=== PATIENT | male | born 1975 | race African-American/Black ===

== ENCOUNTER 2016-05-15 22:01 | Emergency (ER) | payer BC ==
[2016-05-15 22:08] VITALS: BP 162/87; PULSE 93; TEMP 98.7; BMI 31.1
[2016-05-15] MEDS ORDERED: ALBUTEROL SO4 2.5/IPRATROPIUM 0.5 INH SOL 3 ML VIAL.NEB. NEB ONE (23:13)
--- NOTE | 2016-05-15 23:19 | PDOC ---
History of Present Illness - General Chief Complaint: Cold Symptoms Stated Complaint: ASTHMA/COUGH Time Seen by Provider: 05/15/16 22:53 History Source: Patient Exam Limitations: No Limitations - History of Present Illness Initial Comments: 05/15/16 23:20 40-year-old male, with no significant past medical history other than asthma, here with complaints of sudden onset of cough for the past 3-4 days. He states that he has had sick contact at home with child and being sick previously. Patient states that he has been having nonproductive cough for past 3 days. He has had albuterol nebulizer but cough still persists. He also had one dose of nebulized budesonide with no improvement. No other complaints at this time. No chest pain, no shortness of breath, no fever, no chills, no headache, no blurry vision, no dyspnea, no dysphagia, no hemoptysis, no bloody sputum. Timing/Duration: reports: getting worse Severity: reports: moderate Possible Cause: Yes: illness exposure Modifying Factors: improves with: albuterol nebulizer Associated Symptoms: reports: denies symptoms Aspirin Received prior to arrival: Yes: no aspirin today. No: unknown, 81 mg x 1, 81 mg x 2, 81 mg x 3, 81 mg x 4, 325 mg x 1, provided at home, provided by EMS, provided by ED ASA Contraindications(Core Measure): No: Allergy, Other, Active Blding w/i 24 hrs., Plavix, Receiving Warfarin Beta Desmond Contraindications(Core Measure): No: Not Prescribed, Allergy, Bradycardia (HR <60bpm), Advanced Heart Block, Pacemaker, Other Beta Desmond Given by EMS(Core Measure): No Beta Desmond Taken at Home(Core Measure): No Beta Desmond Not Indicated at this Time(Core Measure): No Past History - Past Medical History Allergies/Adverse Reactions: Allergies Allergy/AdvReac Type Severity Reaction Status Date / Time ibuprofen [From Motrin] Allergy Mild Hives Verified 05/15/16 22:05 Home Medications: Ambulatory Orders NK [No Known Home Medication] 04/20/14 Asthma: Yes HTN: Yes Suicide Attempt (Hx): No - Psycho/Social/Smoking Cessation Hx Anxiety: No Suicidal Ideation: No Smoking Status: No Smoking History: Never smoked Have you smoked in the past 12 months: No Number of Cigarettes Smoked Daily: 0 Information on smoking cessation initiated: No Hx Alcohol Use: No Drug/Substance Use Hx: No Substance Use Type: None *Physical Exam - Vital Signs Last Vital Signs Temp Pulse Resp BP Pulse Ox 98.7 F 93 H 14 162/87 96 05/15/16 22:05 05/15/16 22:05 05/15/16 22:05 05/15/16 22:05 05/15/16 22:05 - Physical Exam General Appearance: Yes: Appropriately Dressed. No: Apparent Distress, Disheveled, Mild Distress, Moderate Distress, Severe Distress, Alcohol on Breath , Intoxicated, Cachetic, Obese, Thin HEENT: positive: EOMI, IVANA, Normal ENT Inspection, Normal Voice, Symmetrical, TMs Normal, Pharynx Normal. negative: Pale Conjunctivae, Photophobia, Scleral Icterus (R), Scleral Icterus (L), Muffled/Hoarse voice, Pharyngeal Erythema, Tonsillar Exudate, Tonsillar Erythema, Nasal Congestion, Rhinorrhea, Sinus Tenderness, Orbits, Hearing Decreased, Hearing Grossly Normal, TM Bulging, TM Dull, TM Erythema, Lesions, Excessive drooling, Thrush Neck: positive: Trachea midline, Normal Thyroid, Supple. negative: Tender, Carotid bruit, Decreased range of motion, Lymphadenopathy (R), Lymphadenopathy ( L), Rigidity, Tender lateral, Tender midline, Thyromegaly Respiratory/Chest: positive: Lungs Clear, Normal Breath Sounds. negative: Chest Tender, Respiratory Distress, Accessory Muscle Use, Labored Respiration, Rapid RR, Decreased Breath Sounds, Paradoxal Breathing, Crackles, Rales, Rhonchi , Stridor, Wheezing, Hyperresonant, Dullness, Plerual Rub, Other Cardiovascular: positive: Regular Rhythm, Regular Rate, S1, S2. negative: Murmur, Bradycardia, Tachycardia, Diastolic Murmur, Systolic Murmur, Gallop/S3, Gallop/S4, Irregularly Irregular, Irregular Lymphatic: negative: Adenopathy, Tenderness Musculoskeletal: positive: Normal Inspection. negative: CVA Tenderness, CVA Tenderness (R), CVA Tenderness (L), Decreased Range of Motion, Muscle Spasm, Vertebral Tenderness, Other Extremity: positive: Normal Capillary Refill, Normal Inspection, Normal Range of Motion, Pelvis Stable. negative: Tender Integumentary: positive: Normal Color, Dry, Warm Neurologic: positive: location director II-XII NML intact, Fully Oriented, Alert, Normal Mood/ Affect, Normal Response, Motor Strength 09/16 ED Treatment Course - RADIOLOGY Radiology Studies Ordered: Category Date Time Status CHEST PA & LAT [RAD] Stat Radiology 05/15/16 23:13 Ordered Progress Note - Progress Note Progress Note: Patient examined here in ER. Patient had Duo-neb nebulizer here in ER, with good effect. CXR done shows NADP First dose ABx given here in ER. Medical Decision Making - Medical Decision Making 05/16/16 00:43 Clear CXR, suspect bronchitis/bronchospasm. Follow up with PCP as needed. Patient encouraged to return to ER for any worsening symptoms. *DC/Admit/Observation/Transfer Diagnosis at time of Disposition: Cough, Bronchitis - Discharge Dispostion Disposition: HOME Condition at time of disposition: Stable Admit: No - Patient Instructions Printed Discharge Instructions: DI for Acute Bronchitis
[2016-05-16] MEDS ORDERED: methylPREDNISolone ACET (DEPO) 80 MG/1 ML VIAL IM ONE (00:04)
[2016-05-16] MEDS ORDERED: AZITHROMYCIN 250 MG TABLET (FP) PO ONE (00:40)
[2016-05-16] MEDS ORDERED: AZITHROMYCIN 250 MG TABLET (FP) ONE (01:02)
== END 2016-05-16 01:09 | disposition home or self-care (01) ==
LOC: JER 22:01
PROC: 3E0F7GC Introduction of Other Therapeutic Substance into Respiratory Tract, Via Natural or Artificial Opening (ICD-10-PCS; principal; 2016-05-15)
PROC: 3E0233Z Introduction of Anti-inflammatory into Muscle, Percutaneous Approach (ICD-10-PCS; 2016-05-15)
DX: J40 Bronchitis, not specified as acute or chronic (principal); J45.909 Unspecified asthma, uncomplicated; I10 Essential (primary) hypertension
CPT/HCPCS: 71020-TC; 99281-25